=== PATIENT | male | born 1965 | race Caucasian/White ===

== ENCOUNTER 2020-06-05 03:50 | Emergency (ER) | payer OTHER, SELFPAY ==
[2020-06-05 03:54] VITALS: BP 183/89; PULSE 101; RESP 33; TEMP 36.2; O2SAT 91; BMI 20.2
[2020-06-05 03:56] VITALS: BP 183/89; PULSE 101; RESP 33; TEMP 36.2; O2SAT 91
--- NOTE | 2020-06-05 04:07 | RAD_ITS ---
STUDY: X-RAY CHEST REASON FOR EXAM: Male, 54 years old. Cough and shortness of breath for 3 months. TECHNIQUE: PA and lateral chest. COMPARISON: None. FINDINGS: Bilateral interstitial densities left greater than right, most prominent at the lung bases. Biapical pleural thickening. No pleural effusions. No pneumothorax. Normal size heart. Normal mediastinum and yuridia. Normal visualized pulmonary arteries. Normal visualized aortic arch and descending thoracic aorta. Normal visualized thoracic spine. Normal visualized ribs, clavicles, and shoulders. There is no demonstrated abnormality of the visualized soft tissue structures of the upper abdomen. RAD/Chest PA and Lateral IMPRESSION: Probable bilateral interstitial pneumonias, left greater than right, which may be superimposed on chronic interstitial lung disease. Consider correlation with CT chest. Electronically Signed: Arnulfo Alston MD at 5:10 EDT , Service support ,
--- NOTE | 2020-06-05 04:08 | ED.VIS.GEN ---
History of Present Illness Chief Complaint: Shortness of Breath Narrative: Presents with 3 to 4-month history of cough and congestion, he has difficulty sleeping on his left side because he starts to cough but when he lays flat on his back he has no difficulty breathing. He has no fever or chills, he has no weight gain or lower extremity edema he has no calf pain he has no DVT or PE risk factors he has no chest pain or any pleuritic components. He has no back pain or tearing sensation. He denies travel history. No night sweats or hemoptysis. Past Medical History - Allergies and Home Meds Allergies/Adverse Reactions: Allergies No Known Allergies Allergy (Verified 06/05/20 03:56) Primary Care Physician: Mahendra Subramanian MD [STAFF PHYSICIAN] - 3-5 Days Past Medical History: None Smoking Status: Never smoker Review of Systems All systems negative except as indicated General: Denies: Fever ENT: Denies: Rhinorrhea, Sore throat Cardiovascular: Denies: Chest pain, Palpitations, Heart racing Respiratory: Reports: Dyspnea, Cough. Denies: Sputum Gastrointestinal: Denies: Abdominal pain, Nausea, Vomiting Musculoskeletal: Denies: Myalgias Skin: Denies: Rash, Abscess Neurological: Denies: Headache, Weakness Psych: Denies: Depression, Anxiety Allergy: Denies: Swelling of the mouth, Swelling of the tongue Physical Exam Vital Signs/Narrative: Vital Signs Temp Pulse Resp BP Pulse Ox 06/05/20 03:54 97.2 F L 101 H 33 H 183/89 H 91 General: Well nourished, Well developed Eyes: Perrl, EOMI ENT: Moist mucous membranes, No rhinorrhea Neck: Supple Cardiovascular: Regular rate, Regular rhythm, No murmurs Respiratory: No distress, - - Is speaking in full sentences, he has some scant end expiratory wheezing and some coarse breath sounds but mostly his lungs are clear bilaterally. Abdomen: Soft, Nontender Back: Nontender, Normal Inspection Skin: Normal color, No rash Neurological: Alert, Normal Sensation Psychological: Normal affect Diagnostic/Tx/Re-eval Chest X-Ray - ED: 1 View, Read by ED Physician, Read by Radiologist, Normal, Heart, Chronic Changes, - - Bilateral infiltrates are present. - Medical Decision Making Patient's S x-ray is consistent with pneumonia, because his symptoms have been ongoing for some time I will refer him to pulmonology. He appears well I will give him antibiotics for home. I told him if he worsens he needs to return. ED Disposition - Plan for ED Patient: Disposition: Home or Assisted Living Diagnosis: Pneumonia Instructions: Pneumonia Prescriptions: Doxycycline 100 mg PO BID #20 cap Prescription Printed Referrals: Mahendra Subramanian MD [STAFF PHYSICIAN] - 3-5 Days
[2020-06-05] MEDS: Ipratropium/Albuterol Sulfate 3 ML AMPUL.NEB INHALATION (04:20)
[2020-06-05 04:21] VITALS: PULSE 87; RESP 18
[2020-06-05 04:35] LABS: Red Blood Count 4.93 M/mm3 (4.6-6.2); White Blood Count 8.6 K/mm3 (4.4-11.0)
[2020-06-05 04:36] LABS: Basophil% 0.6 % (0-1); Eosinophils% 6.7 % (0-5); Hematocrit 42.3 % (40-54); Lymphocyte % 14.8 % (19-41); Mean Corp Hgb Conc 30.7 g/dL (32-36); Mean Corpuscular Hgb 26.4 pg (27.0-32.0); Mean Corpuscular Volume 85.8 fL (80-94); Mean Platelet Vol. 8.9 fl (6.2-12.0); Monocyte% 7.9 % (0-10); Neutrophil % 69.7 % (47-70); Platelet Count 401 K/mm3 (150-450); RBC Distribution Width CV 13.9 % (11.6-14.6); RBC Distribution Width SD 43.8 fl (35.1-43.9)
[2020-06-05 04:37] LABS: Absolute Lymphocyte Count 1.27 X10^3/uL (0.83-4.51)
[2020-06-05 04:55] LABS: ALB/GLOB Ratio 0.5 RATIO (0.9-2.4); AST(SGOT) 15 U/L (15-37); Alanine Aminotransfer ALT/SGPT 18 U/L (16-61); Albumin, Serum 2.7 g/dL (3.2-5.0); Alkaline Phosphatase 75 U/L (45-117); BUN 12 mg/dL (7-18); EST Glomerular Filtration Rate 108 mL/min (>60); Est Glom Filt Rate - Afr Amer 131 mL/min (>60); Estimated Creatinine Clearance 103.74 ml/min; Globulin 5.7 g/dL (2.2-4.2); Glucose 88 mg/dL (74-106); Protein, Total 8.4 g/dL (6.4-8.2)
[2020-06-05 04:56] VITALS: BP 148/84; PULSE 99; RESP 18; TEMP 36.8; O2SAT 97
[2020-06-05 04:56] LABS: Anion Gap 3 (5-15); Chloride 103 mmol/L (98-107); Potassium 3.4 mmol/L (3.5-5.1); Sodium Level 139 mmol/L (136-145)
--- NOTE | 2020-06-05 05:16 | ED.RN ---
DUONEB GIVEN AT 0420 BY OSCAR IN RESPIRATORY. [facility] HAVING EMAR ISSUES AND WON'T LET NOÉ OR THIS NURSE SIGNOFF ON THE MEDS.
[2020-06-05 05:35] VITALS: BP 153/84; PULSE 84; RESP 18; TEMP 36.6; O2SAT 97
[2020-06-05] MEDS: Doxycycline 100 MG CAPSULE PO (05:35)
== END 2020-06-05 05:40 | disposition home or self-care (01) ==
PROVIDERS: Emergency Provider Emergency Medicine
DX: J18.9 Pneumonia, unspecified organism (principal)
CPT/HCPCS: 71046; 80053; 83880; 84484; 85025; 94640; 99284; A4216

== ENCOUNTER 2020-08-07 00:50 | Inpatient (IN) | payer OTHER, SELFPAY ==
[2020-08-07] VITALS (22 sets, daily range): BP systolic 129–160; BP diastolic 69–107; PULSE 77–110; RESP 18–28; TEMP 36.6–37.3; O2SAT 85–100; BMI 20.7; BMI 19.1
--- NOTE | 2020-08-07 01:26 | EKG12_ITS ---
Test Reason : SOB Blood Pressure : / mmHG Vent. Rate : 098 BPM Atrial Rate : 098 BPM P-R Int : 130 ms QRS Dur : 092 ms QT Int : 338 ms P-R-T Axes : 061 027 033 degrees QTc Int : 431 ms Normal sinus rhythm Normal ECG Confirmed by TREMAINE GILLIAM, JAVIER ([id number]), restaurant expeditor ADAN PHAM ([id number]) on 08/08/2020 10:54:36 AM Referred By: Shayan Grimaldo Confirmed By:JAVIER PENALOZA MD
--- NOTE | 2020-08-07 01:29 | ED.DCSUM_ITS ---
History of Present Illness Chief Complaint: Shortness of Breath Informant: Patient Narrative: 54-year-old male tells me that he was diagnosed with pneumonia 3 weeks ago in the emergency department. It was actually in May. He tells me he is not a smoker and he has never been a smoker. He states that his has been telling him that he did not get enough antibiotics when he was seen initially. He states that he was tried to make an appointment with [facility] but they cannot see him or schedule until after the new year. He states that he has lost about 15 pounds over the past 2 months. He tells me that he is extremely weak. He states his got to the point now that he cannot pull the garage door down. He notes chronic rhinorrhea. He states he has sputum production that is worse in the morning. Past Medical History - Allergies and Home Meds Allergies/Adverse Reactions: Allergies No Known Allergies Allergy (Verified 06/05/20 03:56) Primary Care Physician: Care Physician,No Primary [Primary Care Provider] - Past Medical History: None Surgical History: noncontributory Lives: Spouse/ Significant Other Smoking Status: Never smoker Drugs: None Review of Systems General: Reports: Malaise, Weight loss. Denies: Chills, Fever, Sweats Eyes: Denies: Visual changes - bilaterally, Diplopia ENT: Reports: Rhinorrhea. Denies: Sore throat Cardiovascular: Denies: Chest pain, Palpitations Respiratory: Reports: Dyspnea, Cough, Sputum, Dyspnea on exertion Gastrointestinal: Denies: Abdominal pain, Nausea, Vomiting, Diarrhea, Melena, Hematochezia Genitourinary: Denies: Dysuria, Hematuria, Frequency Musculoskeletal: Denies: Back pain, Extremity Pain Skin: Denies: Rash, Wounds Neurological: Denies: Headache, Weakness, Numbness Physical Exam Vital Signs/Narrative: Vital Signs Temp Pulse Resp BP Pulse Ox 08/07/20 00:58 98.7 F 96 22 H 135/99 H 98 08/07/20 00:55 98.7 F 104 H 97 H 157/103 H 93 Inital Vital Signs reviewed: Yes General: Well nourished, Well developed, No Acute Distress Head: Normocephalic, Atraumatic Eyes: Perrl, EOMI ENT: Moist mucous membranes, No rhinorrhea Neck: Supple, Nontender Cardiovascular: Regular rate, Regular rhythm, No murmurs, Tachycardia Respiratory: No distress, CTA bilaterally, Chest nontender Abdomen: Soft, Nontender, Nondistended, Normal bowel sounds Back: Nontender, Normal Inspection Extremities: Nontender, No edema Skin: Normal color, No rash Neurological: Alert, Oriented x3, Cranial nerves II-XII grossly intact, Normal Strength, Normal Sensation Psychological: Normal affect, Normal Mood Diagnostic/Tx/Re-eval Clinical Impression(s) from Imaging Studies Chest CTA 08/07/20 01:55 IMPRESSION: Evaluation for pulmonary embolism. There is no pulmonary embolism within the main pulmonary artery, right and left main pulmonary arteries or segmental pulmonary arteries. Evaluation of subsegmental branches is limited. Emphysematous changes. Atelectasis/scarring within the lungs. Pulmonary fibrosis. There is groundglass opacities present. There is pulmonary nodules present. Nonspecific. This may be related to infectious inflammatory process and/or asymmetric edema. Correlate clinically. An atypical viral infectious process such as Covid 19 can BE considered in the appropriate clinical setting. Recommend a follow-up CT scan in 3-4 weeks to ensure resolution and to exclude underlying neoplasm. Mediastinal hilar lymphadenopathy measuring up to 2.2 cm. Incompletely characterized low-attenuation structure left kidney correlate with nonemergent outpatient ultrasound as above. Other findings as above. Electronically Signed: Patricio Patti, at 3:17 EST Tel , Service support , Laboratory Last Values WBC 11.7 K/mm3 (4.4-11.0) H 08/07/20 01:00 RBC 5.34 M/mm3 (4.6-6.2) 08/07/20 01:00 Hgb 14.1 g/dL (13.0-16.5) 08/07/20 01:00 Hct 44.7 % (40-54) 08/07/20 01:00 MCV 83.7 fL (80-94) 08/07/20 01:00 MCH 26.4 pg (27.0-32.0) L 08/07/20 01:00 MCHC 31.5 g/dL (32-36) L 08/07/20 01:00 RDW Std Deviation 41.5 fl (35.1-43.9) 08/07/20 01:00 RDW Coeff of Lenny 13.5 % (11.6-14.6) 08/07/20 01:00 Plt Count 479 K/mm3 (150-450) H 08/07/20 01:00 MPV 9.1 fl (6.2-12.0) 08/07/20 01:00 Immature Gran % (Auto) 0.300 % (0.0-0.9) 08/07/20 01:00 Neut % (Auto) 74.9 % (47-70) H 08/07/20 01:00 Lymph % (Auto) 12.4 % (19-41) L 08/07/20 01:00 [place] % (Auto) 6.7 % (0-10) 08/07/20 01:00 Eos % (Auto) 4.9 % (0-5) 08/07/20 01:00 Baso % (Auto) 0.8 % (0-1) 08/07/20 01:00 Absolute Neuts (auto) 8.8 X10^3/uL (2.0-7.7) H 08/07/20 01:00 Absolute Lymphs (auto) 1.45 X10^3/uL (0.83-4.51) 08/07/20 01:00 Nucleated RBC % 0 % (0-5) 08/07/20 01:00 Sodium 140 mmol/L (136-145) 08/07/20 01:00 Potassium 3.5 mmol/L (3.5-5.1) 08/07/20 01:00 Chloride 107 mmol/L (98-107) 08/07/20 01:00 Carbon Dioxide 30.0 mmol/L (21.0-32.0) 08/07/20 01:00 Anion Gap 3 (5-15) L 08/07/20 01:00 BUN 23 mg/dL (7-18) H 08/07/20 01:00 Creatinine 1.01 mg/dL (0.70-1.30) 08/07/20 01:00 Estim Creat Clear Calc 74.65 ml/min 08/07/20 01:00 Est GFR (MDRD) Af Amer 100 mL/min (>60) 08/07/20 01:00 Est GFR (MDRD) Non-Af 82 mL/min (>60) 08/07/20 01:00 BUN/Creatinine Ratio 22.8 RATIO (10-20) H 08/07/20 01:00 Glucose 96 mg/dL (74-106) 08/07/20 01:00 Calcium 8.6 mg/dL (8.5-10.1) 08/07/20 01:00 Total Bilirubin 0.10 mg/dL (0.20-1.00) L 08/07/20 01:00 AST 15 U/L (15-37) 08/07/20 01:00 ALT 15 U/L (16-61) L 08/07/20 01:00 Alkaline Phosphatase 88 U/L (45-117) 08/07/20 01:00 Troponin I < 0.015 ng/mL (<0.045) 08/07/20 01:00 Total Protein 9.3 g/dL (6.4-8.2) H 08/07/20 01:00 Albumin 2.8 g/dL (3.2-5.0) L 08/07/20 01:00 Globulin 6.5 g/dL (2.2-4.2) H 08/07/20 01:00 Albumin/Globulin Ratio 0.4 RATIO (0.9-2.4) L 08/07/20 01:00 - Medical Decision Making I reviewed the patient's chest x-ray from May. My concern is more for interstitial lung disease. Basic blood work showed a white count 11.7. His EKG demonstrates a normal sinus rhythm at a rate of 98. Patient at rest is about 90-91% on room air. Get him up and ambulate him and he stays about 90-91 but his heart rate goes to 120. At times when he has been resting on room air in the room he will drop to 85% with an excellent waveform. Therefore he is placed on supplemental oxygen. I did obtain the CT of his chest. He most likely has an interstitial lung disease? Pulmonary fibrosis. The picture suggest very advanced disease. This would make sense given his weight loss which is most likely due to muscle wasting question from chronic hypoxemia. I know that getting into pulmonology is very difficult currently in the pandemic. As he is requiring oxygen given the significant of his disease I think is reasonable to bring him into the hospital have pulmonology see him. ED Disposition - Plan for ED Patient: Disposition: Acute Care Hospital [facility] Diagnosis: Interstitial lung disease, Hypoxia, Weight loss, unintentional Referrals: Care Physician,No Primary [Primary Care Provider] -
[2020-08-07 01:31] LABS: Absolute Lymphocyte Count 1.45 X10^3/uL (0.83-4.51); Absolute Neutrophil Count 8.8 X10^3/uL (2.0-7.7); Basophil# 0.09 X10^3/uL; Basophil% 0.8 % (0-1); Eosinophil# 0.57 X10^3/uL; Eosinophils% 4.9 % (0-5); Hematocrit 44.7 % (40-54); Hemoglobin 14.1 g/dL (13.0-16.5); Lymphocyte # 1.45 X10^3/ul (4.0); Lymphocyte % 12.4 % (19-41); Mean Corp Hgb Conc 31.5 g/dL (32-36); Mean Corpuscular Hgb 26.4 pg (27.0-32.0); Mean Corpuscular Volume 83.7 fL (80-94); Mean Platelet Vol. 9.1 fl (6.2-12.0); Monocyte# 0.78 X10^3/uL; Monocyte% 6.7 % (0-10); NRBC Flagged by Analyzer 0 % (0-5); Neutrophil # 8.77 X10^3/uL (2.7-7.7); Neutrophil % 74.9 % (47-70); Platelet Count 479 K/mm3 (150-450); RBC Distribution Width CV 13.5 % (11.6-14.6); RBC Distribution Width SD 41.5 fl (35.1-43.9); Red Blood Count 5.34 M/mm3 (4.6-6.2); White Blood Count 11.7 K/mm3 (4.4-11.0)
[2020-08-07 01:46] LABS: ALB/GLOB Ratio 0.4 RATIO (0.9-2.4); AST(SGOT) 15 U/L (15-37); Alanine Aminotransfer ALT/SGPT 15 U/L (16-61); Albumin, Serum 2.8 g/dL (3.2-5.0); Alkaline Phosphatase 88 U/L (45-117); Anion Gap 3 (5-15); BUN 23 mg/dL (7-18); BUN/Creat Ratio 22.8 RATIO (10-20); Calcium,Total 8.6 mg/dL (8.5-10.1); Chloride 107 mmol/L (98-107); Creatinine, Serum 1.01 mg/dL (0.70-1.30); EST Glomerular Filtration Rate 82 mL/min (>60); Est Glom Filt Rate - Afr Amer 100 mL/min (>60); Estimated Creatinine Clearance 74.65 ml/min; Globulin 6.5 g/dL (2.2-4.2); Glucose 96 mg/dL (74-106); Potassium 3.5 mmol/L (3.5-5.1); Protein, Total 9.3 g/dL (6.4-8.2); Sodium Level 140 mmol/L (136-145)
--- NOTE | 2020-08-07 01:55 | CT_ITS ---
STUDY: CTA CHEST REASON FOR EXAM: Male, 54 years old. SOB X 5 WEEKS/COUGH. Hx of HTN RADIATION DOSAGE (If Supplied By Facility): CTDIvol = ( 5.24 ) mGy, DLP = ( 186.95 ) mGycm TECHNIQUE: The examination was performed with the intravenous administration of IV 75ML ISOVUE 300. Post-processing of the angiographic images was performed, with multiplanar reformation and 3D reconstruction. Individualized dose optimization techniques were used for this CT. COMPARISON: None. FINDINGS: Evaluation for pulmonary embolism. There is no pulmonary embolism within the main pulmonary artery, right and left main pulmonary arteries or segmental pulmonary arteries. Evaluation of subsegmental branches is limited. Normal thoracic aorta and visualized great vessels. There is no demonstrated aortic dissection. Normal heart and pericardium. Mediastinal and hilar lymphadenopathy measuring up to 2.2 cm in short axis. Emphysematous changes. Pulmonary fibrosis. Areas of atelectasis/scarring. No pneumothorax or pleural effusion. Groundglass opacities are present. Pulmonary nodules measuring up to 1.3 cm. There are degenerative changes of thoracic spine. Small hiatal hernia. Incompletely characterized 1.4 cm structure within the left kidney. May represent a cyst however given limitations correlate with prior studies versus nonemergent outpatient ultrasound for further evaluation and to exclude underlying mass lesion. CT/CTA Chest W/WO Contrast IMPRESSION: Evaluation for pulmonary embolism. There is no pulmonary embolism within the main pulmonary artery, right and left main pulmonary arteries or segmental pulmonary arteries. Evaluation of subsegmental branches is limited. Emphysematous changes. Atelectasis/scarring within the lungs. Pulmonary fibrosis. There is groundglass opacities present. There is pulmonary nodules present. Nonspecific. This may be related to infectious inflammatory process and/or asymmetric edema. Correlate clinically. An atypical viral infectious process such as Covid 19 can BE considered in the appropriate clinical setting. Recommend a follow-up CT scan in 3-4 weeks to ensure resolution and to exclude underlying neoplasm. Mediastinal hilar lymphadenopathy measuring up to 2.2 cm. Incompletely characterized low-attenuation structure left kidney correlate with nonemergent outpatient ultrasound as above. Other findings as above. Electronically Signed: Patricio Armstrong, at 3:17 EST Tel , Service support ,
--- NOTE | 2020-08-07 04:15 | PCM.HP.STD ---
Problem List (1) Suspected pneumonia Status: Acute (2) Interstitial lung disease Status: Acute (3) Hypoxia Status: Acute (4) Weight loss, unintentional Status: Acute History of Present Illness Date of Admission: 08/07/20 Chief Complaint: Shortness of breath. The patient is a 54 year old M with no significant past medical history presented to the emergency room because of shortness of breath. The patient mentioned that his symptoms has been going on at least for 8 months, has been progressive, diagnosed with pneumonia several weeks ago and he was discharged home on doxycycline. He states that his symptoms are mainly exertional, he gets short of breath with mild to moderate activity, aggravated by more activity and relieved with rest, associated with productive cough with clear sputum as well as profound weakness and fatigue. Also, he reported unintentional weight loss although he is not sure how much exactly he lost but he mentioned he may lost about 15 pounds over the past 2 months. He denied fever or chills. He denied sick contacts or recent travel. He denied night sweats. He denied smoking. 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 In the emergency department, he was afebrile, heart rate was around 100, blood pressure was slight elevated, pulse ox was 85% on room air and required 2 L of oxygen. Routine blood work was remarkable for minimal leukocytosis with neutrophilia, otherwise unremarkable. LFT was unremarkable. EKG revealed normal sinus rhythm without evidence of acute ischemic changes. Troponin was negative. CTA chest done and showed no PE or dissection, revealed bilateral groundglass opacities more on the left lung with small scattered bilateral lung nodules measuring up to 1.3 cm, hilar lymphadenopathy. COVID-19 antigen came back negative. He is being admitted for suspected community-acquired pneumonia with hypoxia in the setting of undiagnosed chronic interstitial lung disease/lung fibrosis. Past Medical History Allergies No Known Allergies Allergy (Verified 06/05/20 03:56) Home Medications: Ambulatory Orders Medication Instructions Recorded Doxycycline 100 mg PO BID #20 cap 06/05/20 Surgical History: herniorrhaphy Psychiatric History: No pertinent psych hx Lives: Spouse/ Significant Other Smoking Status: Current every day smoker Tobacco Use: Cigarettes Alcohol: None Drugs: None - *Family History Maternal History Items: No pertinent history Paternal History Items: Diabetes, Hypertension Sibling History Items: Hypertension Review of Systems Constitutional: Reports: Anorexia, Weakness, Weight Change, Fatigue. Denies: Chills, Fever Eyes: Denies: Blurred vision, Double vision, Drainage, Redness HEENT: Denies: Difficulty Hearing, Ear Pain, Eye Pain, Nasal Congestion, Sore Throat Cardiovascular: Denies: Chest Pain, Chest Tightness, Edema, Heaviness, Light Headedness, Palpitations, Syncope Respiratory: Reports: Cough, Shortness of Breath, Shortness of breath upon exertion, Sputum production. Denies: Wheezing Gastrointestinal: Denies: Abdominal Pain, Constipation, Diarrhea, Nausea, Vomiting Genitourinary: Denies: Dysuria, Frequency, Hematuria Musculoskeletal: Denies: Arm Pain, Back Pain, Foot Pain Skin: Denies: Dryness, Rash Neurological: Denies: Balance problems, Change in Speech, Slurred speech, Confusion, Headaches, Incoordination, Numbness, Tingling Psychiatric: Denies: Anxiety, Depression Endocrine: Reports: Change in Body Habitus - Weight loss.. Denies: Polydipsia, Polyuria VTE Information - Inpt Only VTE Present on Admission: No VTE Mechan Device Prophylaxis: None VTE Pharm Prophylaxis ordered?: No Patient Problems: Active and Suspected Problems Interstitial lung disease (Acute) Hypoxia (Acute) Weight loss, unintentional (Acute) - Physical Exam Vitals/I&O's: Vital Signs Temp Pulse Resp BP Pulse Ox 98.7 F 79 28 H 139/90 H 100 08/07/20 03:00 08/07/20 04:00 08/07/20 04:00 08/07/20 04:00 08/07/20 04:00 Oxygen Flow Rate (L/min) 2 Oxygen Delivery Method Nasal Cannula Weight: 136 lb Body Mass Index (BMI) 20.7 General: Alert, Oriented x3, Cooperative, - - Mildly short of breath at rest. HEENT: Atraumatic, PERRLA, EOMI, Normocephalic Oral: Moist Mucosa, No Gingival or Mucosal Lesions/ Ulcerations Neck: Supple, No JVD, Negative Carotid Bruits, Trachea Midline, Thyroid Normal Size and Texture Lungs: No rhonchi, No wheeze, Diminished, Rales, Short of Breath, - - Diminished breath sounds bilateral, bilateral basilar bronchial breathing with fine rales. Cardiovascular: Regular rate, Regular Rhythm, Normal S1, Normal S2, PMI Normal, Tachycardic Abdomen: Bowel Sounds Present, Soft, Non Tender, Non-Distended, No Hepato-splenomegaly Extremities: No clubbing, No cyanosis, No edema Skin: No rashes, No breakdown Lymphatic: No Cervical, Supraclavicular, or Inguinal Adenopathy Neurological: Cranial nerves II-XII grossly intact, Motor Exam 5/5 strength throughout Psych/Mental Status: Normal Affect, Appropriate, Alert and oriented to time, place, person, mood and affect Microbiology Past 72 Hours 08/07/20 03:30 Mucosa - Nose SARS-CoV-2 Antigen (Rapid) - Final Laboratory Results 08/07/20 01:00: WBC 11.7 H, RBC 5.34, Hgb 14.1, Hct 44.7, MCV 83.7, MCH 26.4 L, MCHC 31.5 L, RDW Std Deviation 41.5, RDW Coeff of Lenny 13.5, Plt Count 479 H, MPV 9.1, Immature Gran % (Auto) 0.300, Neut % (Auto) 74.9 H, Lymph % (Auto) 12.4 L, [place] % (Auto) 6.7, Eos % (Auto) 4.9, Baso % (Auto) 0.8, Absolute Neuts (auto) 8.8 H, Absolute Lymphs (auto) 1.45, Nucleated RBC % 0 08/07/20 01:00: Sodium 140, Potassium 3.5, Chloride 107, Carbon Dioxide 30.0, Anion Gap 3 L, BUN 23 H, Creatinine 1.01, Estim Creat Clear Calc 74.65, Est GFR (MDRD) Af Amer 100, Est GFR (MDRD) Non-Af 82, BUN/Creatinine Ratio 22.8 H, Glucose 96, Calcium 8.6, Total Bilirubin 0.10 L, AST 15, ALT 15 L, Alkaline Phosphatase 88, Troponin I < 0.015, Total Protein 9.3 H, Albumin 2.8 L, Globulin 6.5 H, Albumin/Globulin Ratio 0.4 L Clinical Impression(s) from Imaging Studies Chest CTA 08/07/20 01:55 IMPRESSION: Evaluation for pulmonary embolism. There is no pulmonary embolism within the main pulmonary artery, right and left main pulmonary arteries or segmental pulmonary arteries. Evaluation of subsegmental branches is limited. Emphysematous changes. Atelectasis/scarring within the lungs. Pulmonary fibrosis. There is groundglass opacities present. There is pulmonary nodules present. Nonspecific. This may be related to infectious inflammatory process and/or asymmetric edema. Correlate clinically. An atypical viral infectious process such as Covid 19 can BE considered in the appropriate clinical setting. Recommend a follow-up CT scan in 3-4 weeks to ensure resolution and to exclude underlying neoplasm. Mediastinal hilar lymphadenopathy measuring up to 2.2 cm. Incompletely characterized low-attenuation structure left kidney correlate with nonemergent outpatient ultrasound as above. Other findings as above. Electronically Signed: Patricio Armstrong, at 3:17 EST Tel , Service support , Current Medications Piperacillin Sod/Tazobactam (Sod 4.5 gm/ Sodium Chloride) 100 mls @ 200 mls/hr IV X1 ONE Stop: 08/07/20 04:32 Assessment/Plan All Active Problems Suspected pneumonia (Acute) Interstitial lung disease (Acute) Hypoxia (Acute) Weight loss, unintentional (Acute) This is a 54 years old male patient presented to the emergency room because of gradually increasing persistent exertional shortness of breath that has been going on for at least 8 months, was diagnosed with pneumonia a few weeks ago and he was discharged on doxycycline, found to have extensive bilateral lung opacities and nodules as well as lung fibrosis, possible pneumonia and he is being admitted for evaluation and treatment. #1 suspected community-acquired pneumonia/interstitial lung disease/lung fibrosis: Chest x-ray that was done on May, reviewed as well as CTA chest that was done this morning. Apparently, there is some sort of chronic interstitial lung disease including emphysema, bronchiectasis, lung fibrosis and pneumonitis. Patient does have mild leukocytosis. He reported associated weight loss, denied night sweats. No significant exposure at workplace. He is non-smoker. Denied family history of chronic lung disease. COVID-19 antigen came back negative. Plan: [facility], telemetry, sputum culture, pneumococcal and Legionella antigen, ESR, C-reactive protein, antinuclear antibodies, DuoNeb every 6 hours, albuterol as needed, Tylenol as needed, Mucinex twice daily, start IV Zosyn, pulmonology consult, repeat CBC and BMP tomorrow morning. #2 acute hypoxic respiratory sufficiency: Pulse ox was 85% on room air, required 2 L of oxygen. Plan as above, treat underlying conditions, oxygen by nasal cannula to keep O2 saturation more than 92%, ambulatory pulse oximeter before discharge. #3 DVT prophylaxis: Low risk patient, no prophylaxis indicated. This note was generated with [employer] dictation software. It may contain incorrect words, spelling, and punctuation that were not noted in checking the note before signing. Inpatient E&M: 43627 Init Hosp L2
[2020-08-07 05:02] LABS: Erythrocyte Sedimentation Rate > 130 mm/hr (0-20)
[2020-08-07 05:10] LABS: CRP 7.13 mg/L (0.0-3.0)
[2020-08-07] MEDS: Ipratropium/Albuterol Sulfate 3 ML AMPUL.NEB INHALATION ×3 (07:00→19:03)
[2020-08-07] MEDS: guaiFENesin 1,200 MG Tablet 1200 MG PO ×2 (08:58→21:02)
--- NOTE | 2020-08-07 09:45 | CASEMGMT ---
RN CM Face to Face with patient for initial transition planning/care coordination assessment. RN CM introduced self and role at [facility]. Patient lying in bed, alert and oriented. Patient willing to participate in assessment and is able to answer all questions appropriately. Care providers, pharmacy, and demographics verified. Patient wishes to discharge home, denies need for home health at this time. Patient states he has no further needs or concerns at this time. CM to follow for discharge planning needs that may arise. PCP: No PCP, patient provided with list Specialists: none Preferred Pharmacy: [facility] Insurance: [employer] Prescription Benefit: yes Living Will/HPOA: yes, Susan Harry LNOK: Living Arrangements: Patient lives with in a 2 story townhouse. Patient states he is independent at home and able to ambulate stairs. Transportation: Self, DME/HHC: Patient denies DME or previous HHC. Will monitor for home oxygen and nebulizer at discharge. Disposition Plan: Patient to discharge home with family support and follow-up plans in place. Mere GEORGE, RN, CM
--- NOTE | 2020-08-07 15:46 | PCM.CONS.PUL ---
Problem List (1) Suspected pneumonia Status: Acute (2) Interstitial lung disease Status: Acute (3) Hypoxia Status: Acute (4) Weight loss, unintentional Status: Acute Reason for Consult Date of Consultation: 08/07/20 Reason for Consultation: Abnormal CT, hypoxia History of Present Illness: The patient is a 54 year old M, with past medical history listed below, who presented to [facility] on 08/07/2020 secondary to progressive shortness of breath. Patient reportedly was seen in May and diagnosed with pneumonia and started on antibiotics. Patient reports that he had progressive shortness of breath and became frustrated so he presented to the ER for evaluation. Patient reportedly had requested an appointment at an outside community relations police lieutenant, but stated that he could not be seen soon enough. Patient reportedly also had a 15 pound weight loss over the last 2 months and has reported progressive weakness. Patient does have rhinorrhea at baseline and has a cough productive of frothy green sputum, typically in the morning. On evaluation in the emergency department, patient was noted to have a leukocytosis of 11.7, normal chemistries, normal LFTs and a negative troponin. Patient was noted to be 90 to 91% on room air at rest, but on ambulation did develop significant tachycardia. Patient also reportedly had episodes where he would desaturate to 85%, so was placed on supplemental oxygen. A CT scan was obtained with impression listed below. Patient was admitted to the hospital for stabilization and evaluation by pulmonary. Since being hospitalized, patient reports subjective improvement in overall condition. Patient states he has not had any significant chest pain, but does get conversational dyspnea frequently. Patient states that in retrospect he has not been right for a year. Patient reports that approximately 6 months ago he started to develop knee and ankle pain that is worse first thing in the morning. Patient does state that he has rheumatoid arthritis in his family with his brother recently being started on therapy and his mother being placed on Biologics for control. Patient states that he had thought it may be rheumatoid arthritis, but did not feel that his pain was bad enough to be evaluated. 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 Patient does state that he tends to have difficulty with physical labor recently. Patient also reports he has had significant weight loss and has not been a skinny since high school. Patient is not reporting any epistaxis, hemoptysis, melena or hematochezia. Review of systems otherwise negative from a constitutional, HEENT, respiratory, cardiovascular, GI, genitourinary, musculoskeletal, skin, neurologic, psychiatric and hematologic system unless stated above. Past Medical History Allergies No Known Allergies Allergy (Verified 06/05/20 03:56) Home Medications: Ambulatory Orders Medication Instructions Recorded Acetaminophen 325 mg PO DAILY PRN PRN 08/07/20 Ibuprofen [Advil] 600 mg PO DAILY PRN PRN 08/07/20 Surgical History: herniorrhaphy Psychiatric History: No pertinent psych hx Lives: Spouse/ Significant Other Smoking Status: Never smoker Tobacco Use: Cigarettes Alcohol: None Drugs: None - *Family History Maternal History Items: No pertinent history Paternal History Items: Diabetes, Hypertension Sibling History Items: Hypertension Review of Systems Comment: See HPI Patient Problems: Active and Suspected Problems Suspected pneumonia (Acute) Interstitial lung disease (Acute) Hypoxia (Acute) Weight loss, unintentional (Acute) Objective: CT scan of the chest was personally reviewed. This does show honeycombing with traction bronchiectasis and scattered groundglass opacities. No pulmonary function test or echocardiogram is available for review. - Physical Exam Vitals/I&O's: Vital Signs Temp Pulse Resp BP Pulse Ox 36.6 C 97 20 H 141/75 H 98 08/07/20 13:31 08/07/20 15:32 08/07/20 13:31 08/07/20 13:31 08/07/20 13:31 Oxygen Flow Rate (L/min) 2 Oxygen Delivery Method Nasal Cannula Weight: 56.9 kg Body Mass Index (BMI) 19.1 Intake and Output for Last 24 Hours 08/05/20 08/06/20 08/07/20 23:59 23:59 23:59 Intake Total 100 / 100 Balance 100 / 100 General: Alert, Oriented x3, Cooperative, - - Mild to moderate conversational dyspnea HEENT: Atraumatic, PERRLA, EOMI, Normocephalic, - - No scleral icterus or injection noted Oral: Moist Mucosa, No Gingival or Mucosal Lesions/ Ulcerations Neck: Supple, No Nodes, Trachea Midline, JVD, Right Lungs: No rhonchi, No wheeze, Diminished, Rales - Bilateral, - - Slightly diminished Cardiovascular: Normal S1, Normal S2, No murmurs, No rub noted, No Gallop, Tachycardic Abdomen: Bowel Sounds Present, Soft, Non Tender, Non-Distended Extremities: No cyanosis, No edema, Clubbing - Stage III Skin: Rash Present - Lateral aspect of ankle and knee, - Musculoskeletal: No Tenderness to Palpation of Joints or Extremities Lymphatic: No Cervical, Supraclavicular, or Inguinal Adenopathy Neurological: Cranial nerves II-XII grossly intact, Neuro grossly intact, Motor Exam 5/5 strength throughout Psych/Mental Status: Alert and oriented to time, place, person, mood and affect Microbiology Past 72 Hours 08/07/20 06:35 Mucosa - Nasopharyngeal Respiratory Panel (PCR) - Final 08/07/20 Unknown Sputum, Expectorated/Coughed Gram Stain - Final 08/07/20 Unknown Urine, Clean Catch Streptococcus pneumoniae Antigen (M - Final 08/07/20 Unknown Urine, Clean Catch Legionella Antigen - Final 08/07/20 03:30 Mucosa - Nose SARS-CoV-2 Antigen (Rapid) - Final Laboratory Results 08/07/20 01:00: WBC 11.7 H, RBC 5.34, Hgb 14.1, Hct 44.7, MCV 83.7, MCH 26.4 L, MCHC 31.5 L, RDW Std Deviation 41.5, RDW Coeff of Lenny 13.5, Plt Count 479 H, MPV 9.1, Immature Gran % (Auto) 0.300, Neut % (Auto) 74.9 H, Lymph % (Auto) 12.4 L, [place] % (Auto) 6.7, Eos % (Auto) 4.9, Baso % (Auto) 0.8, Absolute Neuts (auto) 8.8 H, Absolute Lymphs (auto) 1.45, Nucleated RBC % 0 08/07/20 01:00: Sodium 140, Potassium 3.5, Chloride 107, Carbon Dioxide 30.0, Anion Gap 3 L, BUN 23 H, Creatinine 1.01, Estim Creat Clear Calc 74.65, Est GFR (MDRD) Af Amer 100, Est GFR (MDRD) Non-Af 82, BUN/Creatinine Ratio 22.8 H, Glucose 96, Calcium 8.6, Total Bilirubin 0.10 L, AST 15, ALT 15 L, Alkaline Phosphatase 88, Troponin I < 0.015, Total Protein 9.3 H, Albumin 2.8 L, Globulin 6.5 H, Albumin/Globulin Ratio 0.4 L 08/07/20 01:00: ESR > 130 H 08/07/20 01:00: C-React Prot Ext Range 7.13 H, Rheumatoid Factor 38.0 H 08/07/20 01:00: CONRAD Screen Pending Current Medications Acetaminophen (Acetaminophen 325 Mg Tablet) 650 mg PO Q6H PRN PRN PRN Reason: Pain Score 1-10/Temp > 100.7 F Albuterol Sulfate (Albuterol 2.5 Mg/3 Ml Vial.Neb.) 2.5 mg INHALATION Q2H PRN PRN PRN Reason: Shortness of Breath/Wheezing Albuterol/Ipratropium (Ipratropium/Albuterol Sulfate 3 Ml Ampul.Neb) 3 ml INHALATION Q6H.RT [facility] Last Admin: 08/07/20 13:14 Dose: 3 ml Documented by: Guaifenesin (Guaifenesin 1,200 Mg Tablet) 1,200 mg PO BID [facility] Last Admin: 08/07/20 08:58 Dose: 1,200 mg Documented by: Piperacillin Sod/Tazobactam (Sod 3.375 gm/ Sodium Chloride) 50 mls @ 12.5 mls/hr IV Q8 [facility] Stop: 08/14/20 14:01 Last Admin: 08/07/20 13:24 Dose: 12.5 mls/hr Documented by: Nutritional Formula (Lactose Free) (Ensure Enlive 120 Ml Liquid) 120 ml PO 4X/DAY [facility] Last Admin: 08/07/20 13:24 Dose: 120 ml Documented by: Ondansetron HCl (Ondansetron 4 Mg/2 Ml Vial) 4 mg IV Q8H PRN PRN PRN Reason: NAUSEA/VOMITING Senna/Docusate Sodium (Senna/Docusate Sodium 1 Tablet) 2 tablet PO BID PRN PRN PRN Reason: Constipation Sodium Chloride (0.9% Saline Lock 10 Ml Syringe) 10 - 40 ml IV UD PRN PRN Reason: SALINE FLUSH Zolpidem Tartrate (Zolpidem Tartrate 5 Mg Tablet) 5 mg PO QHS PRN PRN PRN Reason: INSOMNIA Clinical Impression(s) from Imaging Studies Chest CTA 08/07/20 01:55 IMPRESSION: Evaluation for pulmonary embolism. There is no pulmonary embolism within the main pulmonary artery, right and left main pulmonary arteries or segmental pulmonary arteries. Evaluation of subsegmental branches is limited. Emphysematous changes. Atelectasis/scarring within the lungs. Pulmonary fibrosis. There is groundglass opacities present. There is pulmonary nodules present. Nonspecific. This may be related to infectious inflammatory process and/or asymmetric edema. Correlate clinically. An atypical viral infectious process such as Covid 19 can BE considered in the appropriate clinical setting. Recommend a follow-up CT scan in 3-4 weeks to ensure resolution and to exclude underlying neoplasm. Mediastinal hilar lymphadenopathy measuring up to 2.2 cm. Incompletely characterized low-attenuation structure left kidney correlate with nonemergent outpatient ultrasound as above. Other findings as above. Electronically Signed: Patricio Armstrong, at 3:17 EST Tel , Service support , Assessment/Plan All Active Problems Suspected pneumonia (Acute) Interstitial lung disease (Acute) Hypoxia (Acute) Weight loss, unintentional (Acute) RECOMMENDATIONS: 1. Obtain anti-CCP and ANCA 2. Obtain echocardiogram for pulmonary hypertension 3. Walking oximetry prior to discharge 4. Complete PFT as an outpatient 5. Likely placed empirically on steroid therapy once autoimmune work-up has been completed IMPRESSIONS: 1. Hypoxia/abnormal CT scan History and physical are suggestive of a protracted course. Patient does have significant clubbing on exam and honeycombing on CT scan. Patient does have a family history significant for rheumatoid arthritis and does have joint pain in his knees and ankles. 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 Patient may have developed an element of pulmonary hypertension secondary to chronic hypoxia. Will obtain an echocardiogram for quantification. Patient should have a walking oximetry prior to discharge. Patient already has an CONRAD pending and positive rheumatoid factor. To complete autoimmune work-up, patient needs an ANCA and anti-CCP. ESR and CRP are suggestive of a high inflammatory state. Once autoimmune work-up is completed, initiation of empiric steroids and outpatient evaluation by rheumatology would likely be indicated. Inpatient E&M: [id number] Init Hosp L3
--- NOTE | 2020-08-07 15:52 | ECHOD_ITS ---
Reason For Study: PHTN Procedure This was a 2D Doppler, Color Flow transthoracic echocardiogram. The exam was of adequate technical quality. Exam performed portable in patient room. Left Ventricle Normal LV size. Mid cavitary false tendon noted. Left ventricular systolic function is normal. The estimated ejection fraction is 65 %. Transmitral doppler flow suggestive of impaired relaxation of left ventricle. No regional wall motion abnormalities noted. Right Ventricle Normal RV size. Normal systolic function. Atria Normal left atrium. Normal right atrium. No doppler evidence for ASD. Mitral Valve There is no mitral annular calcification. Normal mitral valve. Trivial mitral valve insufficiency. Tricuspid Valve Normal tricuspid valve. Mild tricuspid valve insufficiency. Unable to estimate RV systolic pressure due to insufficient tricuspid regurgitant envelope. Aortic Valve Trisinus/trileaflet aortic valve. Normal aortic valve. Pulmonic Valve Normal pulmonic valve. Great Vessels Normal sized aortic root. Pericardium/Pleural No pericardial effusion. MMode/2D Measurements & Calculations LVIDd: 3.8 cm IVSd: 1.2 cm Ao root diam: 3.1 cm LVIDs: 2.5 cm LVPWd: 1.2 cm LA dimension: 2.9 cm FS: 34.7 % LAV(MOD-bp): 35.0 ml LA A4 area: 13.8 cm2 RA A4 area: 16.0 cm2 LAV(MOD-bp) Indexed: 20.9 ml/m2 LAV(MOD-sp2): 33.5 ml LAV(MOD-sp4): 27.9 ml Time Measurements MV dec time: 0.23 sec Doppler Measurements & Calculations MV E max saud: 76.4 cm/sec Lat Peak E' Saud: 8.1 cm/sec Med Peak E' Saud: 9.2 cm/sec MV A max saud: 98.7 cm/sec E/E' lat: 9.5 E/E' med: 8.3 MV E/A: 0.77 MV V2 max: 86.7 cm/sec MV P1/2t max saud: 76.4 cm/sec Ao V2 max: 145.5 cm/sec MV max P.0 mmHg MV P1/2t: 81.4 msec Ao max P.5 mmHg MV V2 mean: 51.8 cm/sec MV dec slope: 274.9 cm/sec2 MV mean P.2 mmHg MVA(P1/2t): 2.7 cm2 MV V2 VTI: 23.0 cm LV V1 max: 100.3 cm/sec PA V2 max: 102.1 cm/sec LV V1 max P.0 mmHg Interpretation Summary Left ventricular systolic function is normal. The estimated ejection fraction is 65 %. Mid cavitary false tendon noted. Trivial mitral valve insufficiency. Mild tricuspid valve insufficiency. Unable to estimate RV systolic pressure due to insufficient tricuspid regurgitant envelope. Transmitral doppler flow suggestive of impaired relaxation of left ventricle Ordering Physician: Mahendra Subramanian Referring Physician: Shayan Grimaldo Performed By: Zackery Morris RCS
[2020-08-08] VITALS (11 sets, daily range): BP systolic 121–142; BP diastolic 81–88; PULSE 65–102; RESP 17–20; TEMP 36.6–36.9; O2SAT 85–97
--- NOTE | 2020-08-08 00:44 | PCS.PANDOC ---
PANDEMIC DOCUMENTATION INITIATED: Date: 08/07/20 Time: 0545
[2020-08-08] MEDS: Ipratropium/Albuterol Sulfate 3 ML AMPUL.NEB INHALATION ×3 (01:17→13:01)
[2020-08-08 06:33] LABS: Absolute Lymphocyte Count 1.63 X10^3/uL (0.83-4.51); Absolute Neutrophil Count 5.8 X10^3/uL (2.0-7.7); Basophil# 0.07 X10^3/uL; Basophil% 0.8 % (0-1); Eosinophil# 0.65 X10^3/uL; Eosinophils% 7.4 % (0-5); Hematocrit 40.1 % (40-54); Hemoglobin 12.7 g/dL (13.0-16.5); Lymphocyte # 1.63 X10^3/ul (4.0); Lymphocyte % 18.6 % (19-41); Mean Corp Hgb Conc 31.7 g/dL (32-36); Mean Corpuscular Hgb 26.7 pg (27.0-32.0); Mean Corpuscular Volume 84.2 fL (80-94); Mean Platelet Vol. 9.1 fl (6.2-12.0); Monocyte# 0.59 X10^3/uL; Monocyte% 6.7 % (0-10); NRBC Flagged by Analyzer 0 % (0-5); Platelet Count 388 K/mm3 (150-450); RBC Distribution Width CV 13.8 % (11.6-14.6); RBC Distribution Width SD 42.3 fl (35.1-43.9); Red Blood Count 4.76 M/mm3 (4.6-6.2); White Blood Count 8.8 K/mm3 (4.4-11.0)
[2020-08-08 06:57] LABS: Anion Gap 4 (5-15); BUN 18 mg/dL (7-18); BUN/Creat Ratio 21.7 RATIO (10-20); Calcium,Total 8.1 mg/dL (8.5-10.1); Chloride 104 mmol/L (98-107); Creatinine, Serum 0.83 mg/dL (0.70-1.30); EST Glomerular Filtration Rate 103 mL/min (>60); Est Glom Filt Rate - Afr Amer 125 mL/min (>60); Estimated Creatinine Clearance 83.79 ml/min; Glucose 84 mg/dL (74-106); Potassium 3.5 mmol/L (3.5-5.1); Sodium Level 138 mmol/L (136-145)
[2020-08-08] MEDS: guaiFENesin 1,200 MG Tablet 1200 MG PO (08:24)
--- NOTE | 2020-08-08 09:58 | PCM.PN.PUL ---
Patient Problems: Active and Suspected Problems Suspected pneumonia (Acute) Interstitial lung disease (Acute) Hypoxia (Acute) Weight loss, unintentional (Acute) Subjective: Patient did okay overnight. Patient was able to be weaned to room air while at rest. Patient reports no subjective change compared to previous. Patient continues to have dyspnea with walking to the bathroom. - Physical Exam Vitals/I&O's: Vital Signs Temp Pulse Resp BP Pulse Ox 36.6 C 102 H 18 142/88 H 95 08/08/20 08:26 08/08/20 09:54 08/08/20 08:26 08/08/20 08:26 08/08/20 08:26 Oxygen Flow Rate (L/min) 2 Oxygen Delivery Method Room Air Weight: 56.9 kg Body Mass Index (BMI) 19.1 Intake and Output for Last 24 Hours 08/06/20 08/07/20 08/08/20 23:59 23:59 23:59 Intake Total 500 / 500 400 / 400 Balance 500 / 500 400 / 400 General: Alert, Oriented x3, Cooperative, - - Mild conversational dyspnea. Appears frail. HEENT: Atraumatic, PERRLA, EOMI, Normocephalic, - - Scleral icterus or injection noted Oral: Moist Mucosa, No Gingival or Mucosal Lesions/ Ulcerations Neck: Supple, No JVD, No Nodes, Trachea Midline Lungs: No rhonchi, No wheeze, Diminished, Rales - Bilateral, - - Symmetric expansion Cardiovascular: Regular rate, Regular Rhythm, Normal S1, Normal S2, No murmurs, No rub noted, No Gallop Abdomen: Bowel Sounds Present, Soft, Non Tender, Non-Distended, Obese Extremities: No cyanosis, No edema, Capillary Refill Less than 3 Seconds, Clubbing Skin: No breakdown, - - No change from previous Musculoskeletal: No Tenderness to Palpation of Joints or Extremities Lymphatic: No Cervical, Supraclavicular, or Inguinal Adenopathy Neurological: Cranial nerves II-XII grossly intact, Neuro grossly intact, Motor Exam 5/5 strength throughout Psych/Mental Status: Alert and oriented to time, place, person, mood and affect Microbiology Past 72 Hours 08/07/20 06:35 Mucosa - Nasopharyngeal Respiratory Panel (PCR) - Final 08/07/20 Unknown Sputum, Expectorated/Coughed Gram Stain - Final 12/22/20 Unknown Urine, Clean Catch Streptococcus pneumoniae Antigen (M - Final 08/07/20 Unknown Urine, Clean Catch Legionella Antigen - Final 08/07/20 03:30 Mucosa - Nose SARS-CoV-2 Antigen (Rapid) - Final Laboratory Results 08/08/20 05:40: CONRAD Screen Pending 08/08/20 05:40: WBC 8.8, RBC 4.76, Hgb 12.7 L, Hct 40.1, MCV 84.2, MCH 26.7 L, MCHC 31.7 L, RDW Std Deviation 42.3, RDW Coeff of Lenny 13.8, Plt Count 388, MPV 9.1, Immature Gran % (Auto) 0.500, Neut % (Auto) 66.0, Lymph % (Auto) 18.6 L, [place] % (Auto) 6.7, Eos % (Auto) 7.4 H, Baso % (Auto) 0.8, Absolute Neuts (auto) 5.8, Absolute Lymphs (auto) 1.63, Nucleated RBC % 0 08/08/20 05:40: Sodium 138, Potassium 3.5, Chloride 104, Carbon Dioxide 30.0, Anion Gap 4 L, BUN 18, Creatinine 0.83, Estim Creat Clear Calc 83.79, Est GFR (MDRD) Af Amer 125, Est GFR (MDRD) Non-Af 103, BUN/Creatinine Ratio 21.7 H, Glucose 84, Calcium 8.1 L 08/08/20 05:40: Cycl Citrul Peptide IgG Pending, c-ANCA Antibody Pending, p-ANCA Antibody Pending Current Medications Acetaminophen (Acetaminophen 325 Mg Tablet) 650 mg PO Q6H PRN PRN PRN Reason: Pain Score 1-10/Temp > 100.7 F Albuterol Sulfate (Albuterol 2.5 Mg/3 Ml Vial.Neb.) 2.5 mg INHALATION Q2H PRN PRN PRN Reason: Shortness of Breath/Wheezing Albuterol/Ipratropium (Ipratropium/Albuterol Sulfate 3 Ml Ampul.Neb) 3 ml INHALATION Q6H.RT [facility] Last Admin: 08/08/20 07:13 Dose: 3 ml Documented by: Guaifenesin (Guaifenesin 1,200 Mg Tablet) 1,200 mg PO BID [facility] Last Admin: 08/08/20 08:24 Dose: 1,200 mg Documented by: Piperacillin Sod/Tazobactam (Sod 3.375 gm/ Sodium Chloride) 50 mls @ 12.5 mls/hr IV Q8 [facility] Stop: 08/14/20 14:01 Last Admin: 08/08/20 05:25 Dose: 12.5 mls/hr Documented by: Nutritional Formula (Lactose Free) (Ensure Enlive 120 Ml Liquid) 120 ml PO 4X/DAY [facility] Last Admin: 08/08/20 08:24 Dose: 120 ml Documented by: Ondansetron HCl (Ondansetron 4 Mg/2 Ml Vial) 4 mg IV Q8H PRN PRN PRN Reason: NAUSEA/VOMITING Senna/Docusate Sodium (Senna/Docusate Sodium 1 Tablet) 2 tablet PO BID PRN PRN PRN Reason: Constipation Sodium Chloride (0.9% Saline Lock 10 Ml Syringe) 10 - 40 ml IV UD PRN PRN Reason: SALINE FLUSH Zolpidem Tartrate (Zolpidem Tartrate 5 Mg Tablet) 5 mg PO QHS PRN PRN PRN Reason: INSOMNIA Medical Necessity - Tobacco Use Smoking Status: Never smoker Tobacco Use: Cigarettes Assessment/Plan All Active Problems Suspected pneumonia (Acute) Interstitial lung disease (Acute) Hypoxia (Acute) Weight loss, unintentional (Acute) RECOMMENDATIONS: 1. Await results of autoimmune labs 2. Await echocardiogram for pulmonary hypertension 3. Walking oximetry prior to discharge 4. Complete PFT and CT scan without contrast at 1 month as an outpatient 5. Initiate prednisone at 40 mg daily until seen as an outpatient 6. Follow-up with nurse practitioner in our office in 2 weeks and arrange for new patient appointment with rheumatology IMPRESSIONS: 1. Hypoxia/abnormal CT scan History and physical are suggestive of a protracted course. Patient does have significant clubbing on exam and honeycombing on CT scan. Patient does have a family history significant for rheumatoid arthritis and does have joint pain in his knees and ankles. 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 Patient may have developed an element of pulmonary hypertension secondary to chronic hypoxia. Will obtain an echocardiogram for quantification. Patient should have a walking oximetry prior to discharge. Autoimmune work-up is currently pending. 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 Patient will be placed on 40 mg of prednisone until seen as an outpatient. At that time, a pulmonary function test and repeat CT scan can be scheduled at approximately a month. Patient will need to follow-up with rheumatology as an outpatient. Patient may be a candidate for antifibrotic medications. Clinical suspicion is supplemental oxygen will least be needed transiently until respiratory status can be stabilized. Inpatient E&M: [id number] [facility] Hosp L2
--- NOTE | 2020-08-08 10:50 | DCINST_ITS ---
- Discharge Diagnoses Current Active Problems: Current Active and Chronic Problems Suspected pneumonia (Acute) Interstitial lung disease (Acute) Hypoxia (Acute) Weight loss, unintentional (Acute) You will use the following diet at home:: Regular Your food should be the consistency of: Regular Your liquids should be the consistency of: Regular/Thin Discharge Activity: Return to Normal Activity Call your doctor if you observe: Fever of 101 or Higher, Shortness of breath, Dizziness, Fainting spells, Swelling in the ankles, Chest pain, Increased palpitations (irregular heartbeat) Allergies/Adverse Reactions: Allergies No Known Allergies Allergy (Verified 06/05/20 03:56) Medications to take at Discharge Acetaminophen 325 mg PO DAILY PRN PRN 08/07/20 Ibuprofen [Advil] 600 mg PO DAILY PRN PRN 08/07/20 Prednisone 40 mg PO DAILY #120 tab 08/08/20 The following prescriptions were given: Prednisone 40 mg PO DAILY #120 tab Transmission Status: Pending to [facility] Primary Care Physician: Care Physician,No Primary [Primary Care Provider] - Test Results: Test results from this visit will be discussed in further detail at your follow- up appointment, if applicable. Please Follow Up With: Ebonie Casas NP, [employer] When: 2 weeks
--- NOTE | 2020-08-08 11:02 | DS.PCM_ITS ---
Discharge Date and Diagnosis - Problem List Patient Problems: Active and Suspected Problems Suspected pneumonia (Acute) Interstitial lung disease (Acute) Hypoxia (Acute) Weight loss, unintentional (Acute) Date of Admission: 08/07/20 Date of Discharge: 08/08/20 - Primary Discharge Diagnosis Acute Problems: Active Problems Suspected pneumonia (Acute) Interstitial lung disease (Acute) Hypoxia (Acute) Weight loss, unintentional (Acute) Hospital Course and Treatment Imaging Results: Clinical Impression(s) from Imaging Studies Chest CTA 08/07/20 01:55 IMPRESSION: Evaluation for pulmonary embolism. There is no pulmonary embolism within the main pulmonary artery, right and left main pulmonary arteries or segmental pulmonary arteries. Evaluation of subsegmental branches is limited. Emphysematous changes. Atelectasis/scarring within the lungs. Pulmonary fibrosis. There is groundglass opacities present. There is pulmonary nodules present. Nonspecific. This may be related to infectious inflammatory process and/or asymmetric edema. Correlate clinically. An atypical viral infectious process such as Covid 19 can BE considered in the appropriate clinical setting. Recommend a follow-up CT scan in 3-4 weeks to ensure resolution and to exclude underlying neoplasm. Mediastinal hilar lymphadenopathy measuring up to 2.2 cm. Incompletely characterized low-attenuation structure left kidney correlate with nonemergent outpatient ultrasound as above. Other findings as above. Electronically Signed: Patricio Patti, at 3:17 EST Tel , Service support , Consults: Pulmonology Operations: None Procedures: 2-D Echocardiogram Summary of Care Provided: Per HPI: The patient is a 54 year old M with no significant past medical history presented to the emergency room because of shortness of breath. The patient mentioned that his symptoms has been going on at least for 8 months, has been progressive, diagnosed with pneumonia several weeks ago and he was discharged h ome on doxycycline. He states that his symptoms are mainly exertional, he gets short of breath with mild to moderate activity, aggravated by more activity and relieved with rest, associated with productive cough with clear sputum as well as profound weakness and fatigue. Also, he reported unintentional weight loss although he is not sure how much exactly he lost but he mentioned he may lost about 15 pounds over the past 2 months. He denied fever or chills. He denied sick contacts or recent travel. He denied night sweats. He denied smoking. 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 In the emergency department, he was afebrile, heart rate was around 100, blood pressure was slight elevated, pulse ox was 85% on room air and required 2 L of oxygen. Routine blood work was remarkable for minimal leukocytosis with neutrophilia, otherwise unremarkable. LFT was unremarkable. EKG revealed normal sinus rhythm without evidence of acute ischemic changes. Troponin was negative. CTA chest done and showed no PE or dissection, revealed bilateral groundglass opacities more on the left lung with small scattered bilateral lung nodules measuring up to 1.3 cm, hilar lymphadenopathy. COVID-19 antigen came back negative. He is being admitted for suspected community-acquired pneumonia with hypoxia in the setting of undiagnosed chronic interstitial lung disease/lung fibrosis. Hospital Course: 1. Acute hypoxic respiratory insufficiency secondary to possible interstitial lung disease from an autoimmune [id number] male who is been having issues with dyspnea on exertion as well as at rest at times was scheduled to follow-up with pulmonology as an outpatient in 2020 however because of shortness of breath that continued he decided to cancel that appointment and presented to the ER. He did have a CT scan obtained which did show honeycombing per pulmonology's review and was consistent with interstitial lung disease and possible connective tissue origin. The autoimmune laboratories are pending as is an echo. However the patient today is on room air though he did require 4 L on ambulation to maintain an oxygen saturation of 93%. Because of the concern for the interstitial lung disease, he was started on prednisone on discharge which he will take for at least 2 weeks 40 mg daily until he follows up with pulmonology as an outpatient at which point he can potentially be tapered. By that time the autoimmune labs should have returned and he would be referred to rheumatology as an outpatient if necessary. Of note, his ESR is over 130, his CRP is 7.13, and his rheumatoid factor is 38. He does have a family history of rheumatoid arthritis. He does not have a fever, and in discussion with pulmonology, we do not feel that he has a pneumonia and therefore his antibiotics were discontinued. I discussed with him the plan for discharge today he expressed understanding of the risk and benefits of going home and would like to go home today. He will need oxygen with ambulation. Patient Problems: Active and Suspected Problems Suspected pneumonia (Acute) Interstitial lung disease (Acute) Hypoxia (Acute) Weight loss, unintentional (Acute) - Physical Exam Vitals/I&O's: Vital Signs Temp Pulse Resp BP Pulse Ox 97.9 F 102 H 18 142/88 H 93 08/08/20 08:26 08/08/20 09:54 08/08/20 08:26 08/08/20 08:26 08/08/20 10:12 Oxygen Flow Rate (L/min) [ 4 AMBULATION with Oxygen] Oxygen Flow Rate (L/min) 2 Oxygen Delivery Method Room Air Weight: 125 lb 7.088 oz Body Mass Index (BMI) 19.1 Intake and Output for Last 24 Hours 08/06/20 08/07/20 08/08/20 23:59 23:59 23:59 Intake Total 500 / 500 450 / 450 Balance 500 / 500 450 / 450 General: Alert, Oriented x3, Cooperative, No apparent distress HEENT: Atraumatic, PERRLA, EOMI, Normocephalic Oral: Moist Mucosa Neck: Supple, No JVD Lungs: No rhonchi, No wheeze, Diminished, Rales - More on the left than on the right Cardiovascular: Regular rate, Regular Rhythm, Normal S1, Normal S2, No murmurs Abdomen: Soft, Non Tender, Non-Distended, No Hepato-splenomegaly Extremities: No edema, Capillary Refill Less than 3 Seconds Skin: No rashes, No breakdown Neurological: Neuro grossly intact, Sensory exam intact to light touch and pain Psych/Mental Status: Normal Affect, Appropriate Microbiology Past 72 Hours 08/07/20 06:35 Mucosa - Nasopharyngeal Respiratory Panel (PCR) - Final 08/07/20 Unknown Sputum, Expectorated/Coughed Gram Stain - Final 08/07/20 Unknown Urine, Clean Catch Streptococcus pneumoniae Antigen (M - Final 08/07/20 Unknown Urine, Clean Catch Legionella Antigen - Final 08/07/20 03:30 Mucosa - Nose SARS-CoV-2 Antigen (Rapid) - Final Laboratory Results 08/08/20 05:40: CONRAD Screen Pending 08/08/20 05:40: WBC 8.8, RBC 4.76, Hgb 12.7 L, Hct 40.1, MCV 84.2, MCH 26.7 L, MCHC 31.7 L, RDW Std Deviation 42.3, RDW Coeff of Lenny 13.8, Plt Count 388, MPV 9.1, Immature Gran % (Auto) 0.500, Neut % (Auto) 66.0, Lymph % (Auto) 18.6 L, Shoshone % (Auto) 6.7, Eos % (Auto) 7.4 H, Baso % (Auto) 0.8, Absolute Neuts (auto) 5.8, Absolute Lymphs (auto) 1.63, Nucleated RBC % 0 08/08/20 05:40: Sodium 138, Potassium 3.5, Chloride 104, Carbon Dioxide 30.0, Anion Gap 4 L, BUN 18, Creatinine 0.83, Estim Creat Clear Calc 83.79, Est GFR (MDRD) Af Amer 125, Est GFR (MDRD) Non-Af 103, BUN/Creatinine Ratio 21.7 H, Glucose 84, Calcium 8.1 L 08/08/20 05:40: Cycl Citrul Peptide IgG Pending, c-ANCA Antibody Pending, p-ANCA Antibody Pending Current Medications Acetaminophen (Acetaminophen 325 Mg Tablet) 650 mg PO Q6H PRN PRN PRN Reason: Pain Score 1-10/Temp > 100.7 F Albuterol Sulfate (Albuterol 2.5 Mg/3 Ml Vial.Neb.) 2.5 mg INHALATION Q2H PRN PRN PRN Reason: Shortness of Breath/Wheezing Albuterol/Ipratropium (Ipratropium/Albuterol Sulfate 3 Ml Ampul.Neb) 3 ml INHALATION Q6H.RT [facility] Last Admin: 08/08/20 07:13 Dose: 3 ml Documented by: Guaifenesin (Guaifenesin 1,200 Mg Tablet) 1,200 mg PO BID [facility] Last Admin: 08/08/20 08:24 Dose: 1,200 mg Documented by: Piperacillin Sod/Tazobactam (Sod 3.375 gm/ Sodium Chloride) 50 mls @ 12.5 mls/hr IV Q8 [facility] Stop: 08/14/20 14:01 Last Infusion: 08/08/20 09:50 Dose: Infused Documented by: Nutritional Formula (Lactose Free) (Ensure Enlive 120 Ml Liquid) 120 ml PO 4X/DAY [facility] Last Admin: 08/08/20 08:24 Dose: 120 ml Documented by: Ondansetron HCl (Ondansetron 4 Mg/2 Ml Vial) 4 mg IV Q8H PRN PRN PRN Reason: NAUSEA/VOMITING Senna/Docusate Sodium (Senna/Docusate Sodium 1 Tablet) 2 tablet PO BID PRN PRN PRN Reason: Constipation Sodium Chloride (0.9% Saline Lock 10 Ml Syringe) 10 - 40 ml IV UD PRN PRN Reason: SALINE FLUSH Zolpidem Tartrate (Zolpidem Tartrate 5 Mg Tablet) 5 mg PO QHS PRN PRN PRN Reason: INSOMNIA Discharge Activity: Return to Normal Activity Call your doctor if you observe: Fever of 101 or Higher, Shortness of breath, Dizziness, Fainting spells, Swelling in the ankles, Chest pain, Increased palpitations (irregular heartbeat) Home Medications: Medications to take at Discharge Acetaminophen 325 mg PO DAILY PRN PRN 08/07/20 Ibuprofen [Advil] 600 mg PO DAILY PRN PRN 08/07/20 Prednisone 40 mg PO DAILY #120 tab 08/08/20 Following Prescriptions Were Given to Patient: Prednisone 40 mg PO DAILY #120 tab Transmission Status: Pending to [facility] Primary Care Physician: Care Physician,No Primary [Primary Care Provider] - Please Follow Up With: Ebonie Casas NP, INDUSTRIAL EDITOR-C When: 2 weeks Disposition: Home Minutes spent on discharge:: 35 Patient Condition:: Stable Medical Necessity - Tobacco Use Smoking Status: Never smoker Tobacco Use: Cigarettes Meaningful Use Info Meaningful Use Diagnoses (Choose all that apply): None applicable Inpatient E&M: 72262 Disch Hosp
--- NOTE | 2020-08-08 16:20 | NURSING ---
RNCM Note: S/w patient regarding need for home oxygen with exertion at 4LNC. 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 Interstitial Lung dz is a new diagnosis for him, has not previously seen pulmonology. Denies former or current smoking. Patient wishes to get questions answered by doctor and with his whom is a nurse. Primary nurse Alhaji aware and sent message to Dr Balderrama. Patient provided an in network list for DME and preference is [facility]. Information faxed to [facility]. [phone] Called [facility] [phone], s/w [facility] received faxed. Working on order. No further needs identified at this time. CHONG Pichardo
[2020-08-10 03:07] LABS: Cytoplasmic Ab (C-ANCA) <1:20 titer (Neg:<1:20)
[2020-08-13 09:57] LABS: CCP IgG Antibodies 9 units (0-19); Perinuclear Ab (P-ANCA) <1:20 titer (Neg:<1:20)
== END 2020-08-08 15:26 | disposition home or self-care (01) | DRG 196 ==
LOC: ED 03:55 → MS3 04:21
PROVIDERS: Internal Medicine Critical Care Medicine; Admitting Provider Hospitalist; Emergency Provider Emergency Medicine; Referring Provider Hospitalist; Visit Provider Family Medicine
DX: J84.89 Other specified interstitial pulmonary diseases (principal); J96.01 Acute respiratory failure with hypoxia; R91.8 Other nonspecific abnormal finding of lung field; R63.4 Abnormal weight loss; Z68.20 Body mass index [BMI] 20.0-20.9, adult; Z87.01 Personal history of pneumonia (recurrent); Z82.61 Family history of arthritis
CPT/HCPCS: 36415; 71275; 80048; 80053; 84484; 85025; 85652; 86038; 86140; 86200; 86256; 86431; 87040; 87070; 87205; 87426; 87449; 87633; 93005; 93306; 94640; 97802; 99284; J7050; Q9967; A4216

== ENCOUNTER → 2020-08-28 10:52 | Outpatient (CLI) | payer OTHER, SELFPAY ==
[2020-08-07 05:44] VITALS: BMI 19.1
[2020-08-28 12:03] LABS: EXAGEN MAILED SPECIMEN
[2020-08-28 15:53] LABS: Absolute Lymphocyte Count 1.97 X10^3/uL (0.83-4.51); Absolute Neutrophil Count 8.3 X10^3/uL (2.0-7.7); Basophil# 0.06 X10^3/uL; Basophil% 0.5 % (0-1); Eosinophils% 7.4 % (0-5); Hematocrit 47.8 % (40-54); Hemoglobin 14.9 g/dL (13.0-16.5); Lymphocyte # 1.97 X10^3/ul (4.0); Lymphocyte % 16.3 % (19-41); Mean Corp Hgb Conc 31.2 g/dL (32-36); Mean Corpuscular Hgb 26.4 pg (27.0-32.0); Mean Corpuscular Volume 84.6 fL (80-94); Mean Platelet Vol. 9.7 fl (6.2-12.0); Monocyte# 0.82 X10^3/uL; Monocyte% 6.8 % (0-10); NRBC Flagged by Analyzer 0 % (0-5); Neutrophil # 8.33 X10^3/uL (2.7-7.7); Neutrophil % 68.7 % (47-70); Platelet Count 415 K/mm3 (150-450); RBC Distribution Width SD 46.3 fl (35.1-43.9); Red Blood Count 5.65 M/mm3 (4.6-6.2); White Blood Count 12.1 K/mm3 (4.4-11.0)
[2020-08-28 16:00] LABS: Prothrombin Time (Protime)PT. 12.5 SECONDS (11.7-14.9)
[2020-08-28 16:01] LABS: Color, Urine Yellow (Yellow); Glucose, Dipstick Normal (Normal); Ketone-Dipstick Negative (Negative); Leukocyte Esterase-Dipstick Negative /ul (Negative); Nitrite-Dipstick Negative (Negative); Occult Blood-Urine 10 /ul (Negative); Partial Thromboplast Time 28.9 Seconds (24.1-36.2); Protein-Dipstick Negative (Negative); Urine Bilirubin Dipstick Negative (Negative); Urine Clarity Clear (Clear); Urine Urobilinogen Normal (Normal)
[2020-08-28 16:22] LABS: Protein, Urine (Random) 24.2 mg/dL (<11.9); Protein:Creat Ratio 450 mg/g CRE (0-200)
[2020-08-28 16:30] LABS: ALB/GLOB Ratio 0.5 RATIO (0.9-2.4); AST(SGOT) 14 U/L (15-37); Alanine Aminotransfer ALT/SGPT 24 U/L (16-61); Alkaline Phosphatase 87 U/L (45-117); Anion Gap 3 (5-15); BUN 13 mg/dL (7-18); BUN/Creat Ratio 14.5 RATIO (10-20); Calcium,Total 8.6 mg/dL (8.5-10.1); Chloride 101 mmol/L (98-107); EST Glomerular Filtration Rate 95 mL/min (>60); Est Glom Filt Rate - Afr Amer 114 mL/min (>60); Globulin 5.6 g/dL (2.2-4.2); Glucose 78 mg/dL (74-106); Potassium 3.4 mmol/L (3.5-5.1); Protein, Total 8.6 g/dL (6.4-8.2); Sodium Level 138 mmol/L (136-145)
[2020-08-29 09:42] LABS: Hepatitis B Surface Antibody Non-Reactive; Hepatitis B Surface Antigen Non-Reactive (Nonreactive); Hepatitis C Antibody Non-Reactive (Nonreactive)
[2020-08-31 05:07] LABS: Dilute Prothrombin Time (dPT) 48.1 sec (0.0-55.0); Dilute Russell Viper Venom 45.3 sec (0.0-47.0); Hexagonal Phase Phospholipid 0 sec (0-11); PTT-LA 36.8 sec (0.0-51.9); Thrombin Time 16.9 sec (0.0-23.0); dPT Confirm Ratio 1.22 Ratio (0.00-1.40)
[2020-08-31 08:12] LABS: Interpretation Comment: (.)
[2020-08-31 08:19] LABS: Thrombin Time 16.8 sec (0.0-23.0)
== END ==
PROVIDERS: Referring Provider Internal Medicine Rheumatology; Visit Provider Internal Medicine Rheumatology
DX: M05.79 Rheumatoid arthritis with rheumatoid factor of multiple sites without organ or systems involvement (principal); R76.8 Other specified abnormal immunological findings in serum; J84.9 Interstitial pulmonary disease, unspecified
CPT/HCPCS: 36415; 80053; 81002; 82570; 84156; 85025; 85598; 85610; 85670; 85730; 86706; 86803; 87340

== ENCOUNTER → 2020-12-17 14:12 | Outpatient (CLI) | payer OTHER, SELFPAY ==
[2020-10-17 13:14] VITALS: BMI 19.8
[2020-12-17 15:23] LABS: Absolute Neutrophil Count 8.8 X10^3/uL (2.0-7.7); Basophil# 0.07 X10^3/uL; Basophil% 0.6 % (0-1); Eosinophil# 0.56 X10^3/uL; Eosinophils% 4.8 % (0-5); Hematocrit 43.2 % (40-54); Lymphocyte % 11.9 % (19-41); Mean Corp Hgb Conc 30.1 g/dL (32-36); Mean Corpuscular Volume 83.2 fL (80-94); Mean Platelet Vol. 9.3 fl (6.2-12.0); Monocyte# 0.85 X10^3/uL; Monocyte% 7.3 % (0-10); NRBC Flagged by Analyzer 0 % (0-5); Neutrophil # 8.81 X10^3/uL (2.7-7.7); Neutrophil % 75.1 % (47-70); Platelet Count 468 K/mm3 (150-450); RBC Distribution Width CV 14.2 % (11.6-14.6); RBC Distribution Width SD 43.3 fl (35.1-43.9); Red Blood Count 5.19 M/mm3 (4.6-6.2); White Blood Count 11.7 K/mm3 (4.4-11.0)
[2020-12-17 16:01] LABS: ALB/GLOB Ratio 0.4 RATIO (0.9-2.4); AST(SGOT) 26 U/L (15-37); Alanine Aminotransfer ALT/SGPT 22 U/L (16-61); Albumin, Serum 2.6 g/dL (3.2-5.0); Alkaline Phosphatase 80 U/L (45-117); Anion Gap 5 (5-15); BUN 14 mg/dL (7-18); BUN/Creat Ratio 17.1 RATIO (10-20); Calcium,Total 8.7 mg/dL (8.5-10.1); Chloride 102 mmol/L (98-107); Creatinine, Serum 0.82 mg/dL (0.70-1.30); EST Glomerular Filtration Rate 104 mL/min (>60); Est Glom Filt Rate - Afr Amer 126 mL/min (>60); Globulin 6.2 g/dL (2.2-4.2); Glucose 80 mg/dL (74-106); Potassium 3.5 mmol/L (3.5-5.1); Protein, Total 8.8 g/dL (6.4-8.2); Sodium Level 137 mmol/L (136-145)
== END ==
PROVIDERS: Referring Provider Internal Medicine Rheumatology; Visit Provider Internal Medicine Rheumatology
DX: M05.79 Rheumatoid arthritis with rheumatoid factor of multiple sites without organ or systems involvement (principal); J84.9 Interstitial pulmonary disease, unspecified; R76.8 Other specified abnormal immunological findings in serum
CPT/HCPCS: 36415; 80053; 85025

== ENCOUNTER → 2020-12-26 08:04 | Outpatient (CLI) | payer OTHER, SELFPAY ==
[2020-10-17 13:14] VITALS: BMI 19.8
--- NOTE | 2020-12-27 08:33 | PFTCOMP ---
COMPLETE PULMONARY FUNCTION TEST INTERPRETATION Brief HPI: Patient is a 55 year old male, currently under the care of Ebonie Casas, who presents to [facility] for complete pulmonary function tests secondary to diagnosis of dyspnea. Respiratory therapist reports good effort and reproducible results. Interpretation: Forced expiration spirometry shows no large airways obstructive ventilatory defect with an FEV1 of 36% predicted. There is no significant bronchodilator response by strict ATS criteria. Spirograms are of poor quality and show exhalation for only 1-1/2 seconds, likely underestimating FVC. The respiratory flow volume loop shows a normal pattern. Lung volumes by body plethysmography show a severely decreased total lung capacity at 3.16 L, 50% predicted. FRC and RV are elevated out of proportion. Lung volume measurements are consistent with air-trapping. Diffusion capacity by carbon monoxide is decreased at 23% predicted. The airway resistance is normal. No previous pulmonary function tests were available for review. Impression: Severe restrictive ventilatory defect with a symmetric reduction diffusing capacity.
== END ==
PROVIDERS: Referring Provider Nurse Practitioner Acute Care; Visit Provider Nurse Practitioner Acute Care
DX: J84.9 Interstitial pulmonary disease, unspecified (principal)
CPT/HCPCS: 94060; 94726; 94729

== ENCOUNTER → 2020-12-27 12:57 | Outpatient (CLI) | payer OTHER, SELFPAY ==
[2020-10-17 13:14] VITALS: BMI 19.8
[2020-12-27 13:00] VITALS: PULSE 109; PULSE 111; PULSE 116; PULSE 117; PULSE 118; O2SAT 87; O2SAT 89; O2SAT 90; O2SAT 91; O2SAT 92; O2SAT 93
--- NOTE | 2020-12-27 13:24 | CPS ---
Upon room air, patients sat's were 89%. Patient stated that he does wear 2L of oxygen at home currently. Test was then initiated on 2L of oxygen. At the 2 minute enrique patients sat's dropped to 87%, therefore oxygen was increased to 3L. Patients oxygen saturations were maintained above 90% for the remainder of the test on 3L.
--- NOTE | 2020-12-27 14:58 | WT_ITS ---
PSN 6 Minute Walk Test 6 Minute Walk Test 6 Minute Walk Test: 6 Minute Walk Test PSN:6-Minute Walk Test Start: 12/27/20 13:21 Freq: Status: Active Protocol: [id number].[id number] Document 12/27/20 13:00 (Rec: 12/27/20 13:27 [id number]) 6 Minute Walk Test Date Performed 12/27/20 Time Performed 13:00 Height 5 ft 9 in Weight: 53.977 kg Weight in Pounds 119.[address]: Ebonie Casas MOLECULAR TECHNOLOGIST FIO2 (% Oxygen) 32 Assistive device used: None Pre-test Oxygen Delivery Method Room Air Pulse Ox (%) 89 Pulse Rate (60-100 beats/min) 109 H Dyspnea Joseph Scale (0-10) 0 Exertion Joseph Scale (6-20) 6 1st minute Oxygen Flow Rate (L/min) (L/min) 2 Oxygen Delivery Method Nasal Cannula Pulse Ox (%) 91 Pulse Rate (60-100 beats/min) 116 H 2nd minute Oxygen Flow Rate (L/min) (L/min) 2 Oxygen Delivery Method Nasal Cannula Pulse Ox (%) 87 Pulse Rate (60-100 beats/min) 118 H 3rd minute Oxygen Flow Rate (L/min) (L/min) 3 Oxygen Delivery Method Nasal Cannula Pulse Ox (%) 92 Pulse Rate (60-100 beats/min) 116 H 4th minute Oxygen Flow Rate (L/min) (L/min) 3 Oxygen Delivery Method Nasal Cannula Pulse Ox (%) 92 Pulse Rate (60-100 beats/min) 117 H 5th minute Oxygen Flow Rate (L/min) (L/min) 3 Oxygen Delivery Method Nasal Cannula Pulse Ox (%) 90 Pulse Rate (60-100 beats/min) 117 H 6th minute Oxygen Flow Rate (L/min) (L/min) 3 Oxygen Delivery Method Nasal Cannula Pulse Ox (%) 91 Pulse Rate (60-100 beats/min) 118 H Post-test Oxygen Flow Rate (L/min) (L/min) 3 Oxygen Delivery Method Nasal Cannula Pulse Ox (%) 93 Pulse Rate (60-100 beats/min) 111 H Dyspnea Joseph Scale (0-10) 2 Exertion Joseph Scale (6-20) 6 Full Laps Walked 13 Partial Lap, Number of Tiles Walked 16 Total Distance Walked (ft) 783 12/27/20 13:24 Cardiopulmonary Services by Jody Rodriguez Upon room air, patients sat's were 89%. Patient stated that he does wear 2L of oxygen at home currently. Test was then initiated on 2L of oxygen. At the 2 minute enrique patients sat's dropped to 87%, therefore oxygen was increased to 3L. Patients oxygen saturations were maintained above 90% for the remainder of the test on 3L. Initialized on 12/27/20 13:24 - END OF NOTE Interpretation Interpretation: The patient was noted to be 89% on room air at rest. The patient did desaturate to 87% in the first minute of ambulation. In total, the patient required 3 L nasal cannula to ambulate 783 feet over the course of 6 minutes with no assistive devices or breaks. The patient did have persistent tachycardia as high as 118 bpm over the course of testing. These findings are consistent with a respiratory limitation exercise tolerance. Recommendations Recommendations: The patient requires 3 LPM with any exertion.
== END ==
PROVIDERS: Referring Provider Nurse Practitioner Acute Care; Visit Provider Nurse Practitioner Acute Care
DX: R06.02 Shortness of breath (principal)
CPT/HCPCS: 94618

== ENCOUNTER → 2020-12-27 13:37 | Outpatient (CLI) | payer OTHER, SELFPAY ==
[2020-10-17 13:14] VITALS: BMI 19.8
[2020-12-27 15:13] LABS: Absolute Lymphocyte Count 1.06 X10^3/uL (0.83-4.51); Absolute Neutrophil Count 5.4 X10^3/uL (2.0-7.7); Basophil# 0.07 X10^3/uL; Basophil% 0.9 % (0-1); Eosinophil# 0.61 X10^3/uL; Hematocrit 41.4 % (40-54); Hemoglobin 12.7 g/dL (13.0-16.5); Lymphocyte # 1.06 X10^3/ul (0.83-4.51); Lymphocyte % 13.9 % (19-41); Mean Corp Hgb Conc 30.7 g/dL (32-36); Mean Corpuscular Hgb 25.6 pg (27.0-32.0); Mean Corpuscular Volume 83.5 fL (80-94); Mean Platelet Vol. 9.3 fl (6.2-12.0); Monocyte# 0.51 X10^3/uL; Monocyte% 6.7 % (0-10); NRBC Flagged by Analyzer 0 % (0-5); Neutrophil # 5.35 X10^3/uL (2.7-7.7); Neutrophil % 70.2 % (47-70); Platelet Count 407 K/mm3 (150-450); RBC Distribution Width CV 14.4 % (11.6-14.6); RBC Distribution Width SD 43.5 fl (35.1-43.9); Red Blood Count 4.96 M/mm3 (4.6-6.2); White Blood Count 7.6 K/mm3 (4.4-11.0)
[2020-12-27 15:21] LABS: Color, Urine Yellow (Yellow); Glucose, Dipstick Normal (Normal); Ketone-Dipstick 5 mg/dl (Negative); Leukocyte Esterase-Dipstick 25 /ul (Negative); Nitrite-Dipstick Negative (Negative); Occult Blood-Urine 25 /ul (Negative); Protein-Dipstick 100 mg/dl (Negative); Urine Clarity Clear (Clear); Urine Urobilinogen 1 mg/dl (Normal)
[2020-12-27 15:40] LABS: Protein:Creat Ratio 462 mg/g CRE (0-200)
[2020-12-27 15:45] LABS: ALB/GLOB Ratio 0.4 RATIO (0.9-2.4); AST(SGOT) 30 U/L (15-37); Alanine Aminotransfer ALT/SGPT 28 U/L (16-61); Albumin, Serum 2.5 g/dL (3.2-5.0); Alkaline Phosphatase 93 U/L (45-117); Anion Gap 1 (5-15); BUN 13 mg/dL (7-18); BUN/Creat Ratio 14.7 RATIO (10-20); Calcium,Total 8.7 mg/dL (8.5-10.1); Chloride 105 mmol/L (98-107); Creatinine, Serum 0.88 mg/dL (0.70-1.30); EST Glomerular Filtration Rate 96 mL/min (>60); Est Glom Filt Rate - Afr Amer 116 mL/min (>60); Globulin 6.1 g/dL (2.2-4.2); Glucose 112 mg/dL (74-106); Potassium 3.4 mmol/L (3.5-5.1); Protein, Total 8.6 g/dL (6.4-8.2); Sodium Level 138 mmol/L (136-145)
[2020-12-27 15:46] LABS: Urine Bilirubin Dipstick 1 mg/dL (Negative)
== END ==
PROVIDERS: Referring Provider Internal Medicine Rheumatology; Visit Provider Internal Medicine Rheumatology
DX: M05.79 Rheumatoid arthritis with rheumatoid factor of multiple sites without organ or systems involvement (principal); J84.9 Interstitial pulmonary disease, unspecified; R76.8 Other specified abnormal immunological findings in serum; Z79.899 Other long term (current) drug therapy
CPT/HCPCS: 36415; 80053; 81002; 82570; 84156; 85025

== ENCOUNTER → 2021-01-02 14:53 | Outpatient (CLI) | payer OTHER, SELFPAY ==
[2021-01-01 15:08] VITALS: BMI 19.8
[2021-01-02 16:34] LABS: Absolute Lymphocyte Count 1.49 X10^3/uL (0.83-4.51); Absolute Neutrophil Count 4.5 X10^3/uL (2.0-7.7); Basophil# 0.08 X10^3/uL; Basophil% 1.1 % (0-1); Eosinophil# 0.89 X10^3/uL; Hematocrit 42.6 % (40-54); Hemoglobin 13.2 g/dL (13.0-16.5); Lymphocyte # 1.49 X10^3/ul (0.83-4.51); Lymphocyte % 20.1 % (19-41); Mean Corpuscular Hgb 25.6 pg (27.0-32.0); Mean Corpuscular Volume 82.7 fL (80-94); Mean Platelet Vol. 9.2 fl (6.2-12.0); Monocyte# 0.45 X10^3/uL; Monocyte% 6.1 % (0-10); NRBC Flagged by Analyzer 0 % (0-5); Neutrophil # 4.45 X10^3/uL (2.7-7.7); Neutrophil % 60.2 % (47-70); Platelet Count 504 K/mm3 (150-450); RBC Distribution Width CV 14.5 % (11.6-14.6); RBC Distribution Width SD 43.4 fl (35.1-43.9); Red Blood Count 5.15 M/mm3 (4.6-6.2); White Blood Count 7.4 K/mm3 (4.4-11.0)
[2021-01-02 16:42] LABS: Erythrocyte Sedimentation Rate 111 mm/hr (0-20)
[2021-01-02 16:50] LABS: Vitamin D,25 Hydroxy 27.4 ng/mL
[2021-01-02 16:57] LABS: ALB/GLOB Ratio 0.4 RATIO (0.9-2.4); AST(SGOT) 29 U/L (15-37); Alanine Aminotransfer ALT/SGPT 22 U/L (16-61); Albumin, Serum 2.4 g/dL (3.2-5.0); Alkaline Phosphatase 84 U/L (45-117); Anion Gap 4 (5-15); BUN 19 mg/dL (7-18); BUN/Creat Ratio 22.6 RATIO (10-20); CRP 9.06 mg/L (0.0-3.0); Calcium,Total 8.6 mg/dL (8.5-10.1); Chloride 106 mmol/L (98-107); Cholesterol 107 mg/dL (200); Creatinine, Serum 0.84 mg/dL (0.70-1.30); EST Glomerular Filtration Rate 101 mL/min (>60); Est Glom Filt Rate - Afr Amer 123 mL/min (>60); Free T3 2.4 pg/mL (2.18-3.98); Globulin 6.3 g/dL (2.2-4.2); Glucose 104 mg/dL (74-106); High Density Lipoprotein 37 mg/dL; Potassium 3.7 mmol/L (3.5-5.1); Protein, Total 8.7 g/dL (6.4-8.2); Sodium Level 139 mmol/L (136-145); T4 Free Direct 1.19 ng/dL (0.76-1.46); Thyroid Stim Hormone (TSH) 1.65 uIU/mL (0.358-3.74); Triglycerides 64 mg/dL; Very Low Density Lipoprotein 13 mg/dL (5-40)
[2021-01-04 16:37] LABS: SAR-COV-2 IGM ANTIBODY Negative (Negative)
== END ==
PROVIDERS: PCP Internal Medicine; Referring Provider Internal Medicine; Visit Provider Internal Medicine
DX: J84.9 Interstitial pulmonary disease, unspecified (principal); R63.4 Abnormal weight loss
CPT/HCPCS: 36415; 80053; 80061; 82306; 84439; 84443; 84481; 85025; 85652; 86140; 86769